=== PATIENT | female | born 1990 | race Caucasian/White ===

== ENCOUNTER 2017-02-13 05:14 | Day surgery (SDC) | payer BC ==
[~2017-02-13] VITALS: Ht 167.6 cm; Wt 106.0 kg
[2017-02-13] MEDS ORDERED: LACTATED RINGERS 1,000 ML IV SCH (05:32)
[2017-02-13] MEDS ORDERED: NONE PER PT (05:57)
[2017-02-13] MEDS ORDERED: BUPIVACAINE/PF 0.5% ONE (06:05)
[2017-02-13] MEDS ORDERED: LIDOCAINE/PF 1.5%-EPI 1:200K, 30ML ONE (06:10)
[2017-02-13] MEDS ORDERED: LIDOCAINE 1%, 2ML ONE (06:15)
[2017-02-13 06:25] LABS: HCG UR OBC PASS
[2017-02-13 06:26] VITALS: BP 116/88
[2017-02-13] MEDS ORDERED: KETOROLAC 30 MG/1 ML ONE (10:46)
== END 2017-02-13 08:00 | disposition home or self-care (01) ==
LOC: OUT 05:14
PROVIDERS: ATTEND Orthopaedic Surgery
DX: M67.442 Ganglion, left hand (principal)
CPT/HCPCS: 26160; 81025; J1885; J3490